=== PATIENT | male | born 1970 | race Caucasian/White ===

== ENCOUNTER → 2017-09-28 | Outpatient (CLI) | payer BC ==
[~2017-09-28] MED LIST: GADOBUTROL 10 ML VIAL IVP ONE
== END ==
LOC: FIMAGING 14:37
PROVIDERS: ATTEND Physician Assistant Medical
DX: R20.2 Paresthesia of skin (principal)
CPT/HCPCS: A9585

== ENCOUNTER → 2017-10-08 | Outpatient (CLI) | payer BC, OTHER ==
[~2017-10-08] MED LIST changes: -GADOBUTROL 10 ML VIAL IVP ONE; +IOPAMIDOL (ISOVUE 370) 100 ML BTL IV ONE
== END ==
LOC: FIMAGING 15:36
PROVIDERS: ATTEND Physician Assistant Medical
DX: Z13.89 Encounter for screening for other disorder (principal)
CPT/HCPCS: Q9967

== ENCOUNTER → 2018-09-12 | Outpatient (CLI) | payer OTHER | LOC: GIMAGING 11:30 → EDSTATUS 15:43 | PROVIDERS: ATTEND Family Medicine | DX: J20.9 Acute bronchitis, unspecified (principal) | CPT/HCPCS: 71046-PO ==